=== PATIENT | male | born 1955 | race American Indian/Alaskan Native ===

== ENCOUNTER 2016-07-02 09:34 | Emergency (ER) | payer OTHER ==
[2016-07-02] MEDS ORDERED: CATAPRES PO ONE (10:09)
--- NOTE | 2016-07-02 10:19 | Emergency Department Report ---
Chief Complaint: High BP Stated Complaint: NECK/LOWER BACK PAIN Time Seen by Provider: 07/02/16 10:06 - HPI History of Present Illness: 61-year-old male presents today with right-sided neck pain and left-sided low back pain radiating down his left leg. Admits to having history of similar symptoms. Denies recent injury or trauma. Denies bowel or bladder incontinence , numbness, weakness, paresthesias. Denies chest pain, shortness of breath, abdominal pain, urinary symptoms. Positive for history of high blood pressure states he has been out of his medication for 3 months. Patient would like a refill of his blood pressure medication and metformin. - ROS Review of Systems: Per HPI - Exam Vital Signs: Vital Signs 07/02/16 09:37 Temperature 98.2 F Pulse Rate 85 Respiratory 18 Rate Blood Pressure 177/111 O2 Sat by Pulse 100 Oximetry Physical Exam: General: 61-year-old male in no acute distress. Well-developed, well-nourished. CV: Regular rate and rhythm. Lungs: Clear to auscultation bilaterally. Abdomen: No tenderness to palpation. No guarding or rebound tenderness. MSE screening note: Focused history and physical exam performed. Due to findings the following was ordered: ED Disposition for MSE Condition: Stable
--- NOTE | 2016-07-02 10:47 | XRay Report ---
Lumbar spine 3 views: History: Midline tenderness. Findings: Normal height of vertebral bodies and intervertebral disc. Sclerotic articular surfaces with peripheral osteophytes at L3 and L4 and L5 vertebral body suggestive of degenerative changes. No fracture. No soft tissue calcification. Impression: Degenerative lumbar spine..
[2016-07-02 10:49] LABS: Basophils % (Auto) 0.4 % (0.0-1.8); Eosinophils % (Auto) 3.5 % (0.0-4.3); Hematocrit 41.7 % (35.5-45.6); Hemoglobin 13.7 gm/dl (11.8-15.2); Mean Corpuscular HGB Conc 33 % (32-34); Mean Corpuscular Hemoglobin 31 pg (28-32); Mean Corpuscular Volume 94 fl (84-94); Platelet Count 134 K/mm3 (140-440); Red Blood Count 4.46 M/mm3 (3.65-5.03); Red Cell Distribution Width 13.5 % (13.2-15.2); White Blood Count 7.6 K/mm3 (4.5-11.0)
[2016-07-02 11:17] LABS: Anion Gap 19 mmol/L; Blood Urea Nitrogen 15 mg/dL (9-20); Calcium 9.2 mg/dL (8.4-10.2); Carbon Dioxide 23 mmol/L (22-30); Chloride 97.1 mmol/L (98-107); Glucose 202 mg/dL (75-100); Potassium 4.5 mmol/L (3.6-5.0); Sodium 135 mmol/L (137-145)
[2016-07-02 12:52] LABS: Bilirubin,Urine NEG (Negative); Blood,Urine NEG (Negative); Ketones,Urine NEG (Negative); Leukocyte Esterase,Urine NEG (Negative); Mucus,Urine FEW /HPF; Nitrite,Urine NEG (Negative); Protein,Urine <15 mg/dL mg/dL (Negative); Urobilinogen,Urine < 2.0 mg/dL (<2.0); WBC,Urine < 1.0 /HPF (0.0-6.0)
[2016-07-02] MEDS ORDERED: ZESTRIL PO ONE (21:47)
[2016-07-02] MEDS ORDERED: TORADOL IM ONE (21:47)
[2016-07-02] MEDS ORDERED: GLUCOPHAGE PO ONE (21:47)
[2016-07-02] MEDS ORDERED: NORVASC PO ONE (21:47)
--- NOTE | 2016-07-02 21:53 | Emergency Department Report ---
ED General Adult HPI - General Chief complaint: High BP Stated complaint: NECK/LOWER BACK PAIN Time Seen by Provider: 07/02/16 10:06 Source: patient Mode of arrival: Ambulatory Limitations: No Limitations - History of Present Illness Initial comments: 61-year-old male with a past medical history of chronic right shoulder pain secondary to injury, hypertension, and diabetes presents to the hospital complains of right-sided neck and shoulder pain and left lower back pain radiating down the left leg. Symptoms times greater than one week and are constant, worse with movement and palpation. No alleviating factors reported. No posterior chest pain, shortness of breath, headache, focal weakness, focal numbness, or urinary incontinence. Patient reports that he had a shoulder injury in 2012 and has had intermittent pain since. Denies recent injury. Patient has been noncompliant with his BP and diabetes medications for greater then 3 months. Patient he was on Lotrel 5/20 and metformin. Patient states he just got his insurance reinstated and plans to follow-up on the with a new PMD. Severity scale (0 -10): 7 - Related Data Previous Rx's Medication Instructions Recorded Last Taken Type Amlodipine Besylate/Benazepril 1 each PO QDAY #30 capsule 07/02/16 Unknown Rx [Lotrel 5-20 mg] HYDROcodone/APAP 5-325 [[place] 1 each PO Q6HR PRN #20 tablet 07/02/16 Unknown Rx 5/325] Ibuprofen [Motrin] 800 mg PO Q8HR PRN #30 tablet 07/02/16 Unknown Rx metFORMIN [Glucophage] 500 mg PO BID #60 tablet 07/02/16 Unknown Rx Allergies Allergy/AdvReac Type Severity Reaction Status Date / Time No Known Allergies Allergy Unverified 07/02/16 09:37 ED Review of Systems ROS: Stated complaint: NECK/LOWER BACK PAIN Other details as noted in HPI Comment: All other systems reviewed and negative Other: Constitutional: No fevers chills Eyes: No eye pain visual changes ENT: No ear pain or throat pain Neck: As per HPI Respiratory: Denies cough wheezing shortness of breath Cardiovascular: Denies chest pain, palpitations, syncope GI: Denies abdominal pain, nausea, vomiting, diarrhea : Denies dysuria Musculoskeletal: As per HPI Skin: Denies rash, lesions, erythema Neurologic: Denies headache, numbness, weakness Psychiatric: Denies suicidal ideation, hallucinations ED Past Medical Hx - Medications Home Medications: Home Medications Medication Instructions Recorded Confirmed Last Taken Type Amlodipine Besylate/Benazepril 1 each PO QDAY #30 capsule 07/02/16 Unknown Rx [Lotrel 5-20 mg] HYDROcodone/APAP 5-325 [[place] 1 each PO Q6HR PRN #20 tablet 07/02/16 Unknown Rx 5/325] Ibuprofen [Motrin] 800 mg PO Q8HR PRN #30 tablet 07/02/16 Unknown Rx metFORMIN [Glucophage] 500 mg PO BID #60 tablet 07/02/16 Unknown Rx ED Physical Exam - General Limitations: No Limitations - Other Other exam information: General: No limitations, patient is alert in no acute distress Head exam: Atraumatic, normocephalic Eyes exam: Normal appearance, pupils equal reactive to light, extraocular movements intact ENT: Moist mucous membrane, normal oropharynx Neck exam: Normal inspection, full range of motion, right tenderness along the sternocleidomastoid muscle and right trapezius muscle Respiratory exam: Clear to auscultation bilateral, no wheezes, rales, crackles Cardiovascular: Normal rate and rhythm, normal heart sounds Abdomen: Soft, nondistended, and nontender, with normal bowel sounds, no rebound, or guarding Extremity: Full range of motion, mild shoulder pain with movement extending to right neck, no shoulder tenderness Back: Normal Inspection, full range of motion, lower left back paraspinal muscle tenderness Neurologic: Alert, oriented x3, cranial nerves intact, no motor or sensory deficit Psychiatric: normal affect, normal mood Skin: Warm, dry, intact ED Course Vital Signs 07/02/16 07/02/16 07/02/16 09:37 11:41 21:15 Temperature 98.2 F Pulse Rate 85 87 Respiratory 18 16 Rate Blood Pressure 177/111 Blood Pressure [Left] Blood Pressure 152/105 [Right] O2 Sat by Pulse 100 99 Oximetry 07/02/16 07/02/16 07/02/16 21:21 22:00 22:19 Temperature 99.0 F Pulse Rate 66 66 Respiratory 18 18 Rate Blood Pressure 147/90 147/90 Blood Pressure [Left] Blood Pressure 169/92 [Right] O2 Sat by Pulse 100 97 Oximetry 07/02/16 07/02/16 07/02/16 22:20 22:24 23:00 Temperature Pulse Rate 66 73 Respiratory 18 Rate Blood Pressure 147/90 131/82 Blood Pressure 147/96 [Left] Blood Pressure 151/93 [Right] O2 Sat by Pulse 99 Oximetry - Reevaluation(s) Reevaluation #1: 07/02/16 21:52 Toradol, metformin, lisinopril, and amlodipine ordered 07/02/16 21:52 Reevaluation #2: 07/02/16 23:38 Pain improved after toradol. BP improved further with ed treatment. ED Medical Decision Making - Lab Data Result diagrams: 07/02/16 10:37 07/02/16 10:37 Lab Results 07/02/16 07/02/16 07/02/16 Range/Units 10:37 10:37 Unknown WBC 7.6 (4.5-11.0) K/mm3 RBC 4.46 (3.65-5.03) M/mm3 Hgb 13.7 (11.8-15.2) gm/dl Hct 41.7 (35.5-45.6) % MCV 94 (84-94) fl MCH 31 (28-32) pg MCHC 33 (32-34) % RDW 13.5 (13.2-15.2) % Plt Count 134 L (140-440) K/mm3 Lymph % (Auto) 38.5 H (13.4-35.0) % [place] % (Auto) 5.8 (0.0-7.3) % Eos % (Auto) 3.5 (0.0-4.3) % Baso % (Auto) 0.4 (0.0-1.8) % Lymph # 2.9 (1.2-5.4) K/mm3 [place] # 0.4 (0.0-0.8) K/mm3 Eos # 0.3 (0.0-0.4) K/mm3 Baso # 0.0 (0.0-0.1) K/mm3 Seg Neutrophils % 51.8 (40.0-70.0) % Seg Neutrophils # 3.9 (1.8-7.7) K/mm3 Sodium 135 L (137-145) mmol/L Potassium 4.5 (3.6-5.0) mmol/L Chloride 97.1 L (98-107) mmol/L Carbon Dioxide 23 (22-30) mmol/L Anion Gap 19 mmol/L BUN 15 (9-20) mg/dL Creatinine 1.0 (0.8-1.5) mg/dL Estimated GFR > 60 ml/min BUN/Creatinine Ratio 15.00 % Glucose 202 H (75-100) mg/dL Calcium 9.2 (8.4-10.2) mg/dL Urine Color Yellow (Yellow) Urine Turbidity Clear (Clear) Urine pH 7.0 (5.0-7.0) Ur Specific [place] 1.021 (1.003-1.030) Urine Protein <15 mg/dl (Negative) mg/dL Urine Glucose (UA) 50 (Negative) mg/dL Urine Ketones Neg (Negative) mg/dL Urine Blood Neg (Negative) Urine Nitrite Neg (Negative) Urine Bilirubin Neg (Negative) Urine Urobilinogen < 2.0 (<2.0) mg/dL Ur Leukocyte Esterase Neg (Negative) Urine WBC (Auto) < 1.0 (0.0-6.0) /HPF Urine RBC (Auto) 1.0 (0.0-6.0) /HPF U Epithel Cells (Auto) 1.0 (0-13.0) /HPF Urine Mucus Few /HPF - Radiology Data Radiology results: report reviewed (xray lumbar: degenerative changes) - Medical Decision Making Patient discharge EMS for symptomatic treatment for right neck strain. Pain improved with Toradol. Blood pressure improved with by mouth meds. - Differential Diagnosis dissection, chronic hypertension, hypertensive emergency, MSK pain Critical Care Time: No Critical care attestation.: If time is entered above; I have spent that time in minutes in the direct care of this critically ill patient, excluding procedure time. ED Disposition Clinical Impression: Uncontrolled hypertension, Diabetes type 2, uncontrolled Neck strain Qualifiers: Encounter type: initial encounter Qualified Code(s): S16.1XXA - Strain of muscle, fascia and tendon at neck level, initial encounter Lumbar strain Qualifiers: Encounter type: initial encounter Qualified Code(s): S39.012A - Strain of muscle, fascia and tendon of lower back, initial encounter Disposition: DISCHARGED TO HOME OR SELFCARE Is pt being admited?: No Does the pt Need Aspirin: No Condition: Stable Instructions: Low Back Strain (ED), Cervical Sprain (ED), Diabetes Mellitus Type 2 in Adults (ED), Hypertension (ED) Additional Instructions: Take the medication as prescribed. Follow-up with your primary care doctor. Return if symptoms worsen. Prescriptions: Amlodipine Besylate/Benazepril [Lotrel 5-20 mg] 1 each PO QDAY #30 capsule HYDROcodone/APAP 5-325 [[place] 5/325] 1 each PO Q6HR PRN #20 tablet PRN Reason: Pain Ibuprofen [Motrin] 800 mg PO Q8HR PRN #30 tablet PRN Reason: Pain metFORMIN [Glucophage] 500 mg PO BID #60 tablet Referrals: PRIMARY CARE, [Primary Care Provider] - 3-5 Days Time of Disposition: 23:41
[2016-07-03 00:40] VITALS: BP 132/80
== END 2016-07-03 00:41 | disposition home or self-care (01) ==
LOC: ED 09:34
DX: S16.1XXA Strain of muscle, fascia and tendon at neck level, initial encounter (principal); S39.012A Strain of muscle, fascia and tendon of lower back, initial encounter; I10 Essential (primary) hypertension; E11.9 Type 2 diabetes mellitus without complications; X58.XXXA Exposure to other specified factors, initial encounter; Y93.9 Activity, unspecified; Y92.9 Unspecified place or not applicable; Y99.9 Unspecified external cause status
CPT/HCPCS: 36415; 72100; 80048; 81001; 85025; 96372; 99284; J1885

== ENCOUNTER 2016-12-19 06:07 | Day surgery (SDC) | payer OTHER ==
[2016-12-19] MEDS ORDERED: WATER FOR IRRIG STERILE IR ONE (06:45)
--- NOTE | 2016-12-19 07:25 | Anesthesia Consultation ---
<ABHILASH BEASLEY - Last Filed: 12/19/16 07:25> Anesthesia Consult and Med Hx Date of service: 12/19/16 - Airway Anesthetic Teeth Evaluation: Good ROM Head & Neck: Adequate Mental/Hyoid Distance: Adequate Mallampati Class: Class II Intubation Access Assessment: Probably Good - Pulmonary Exam CTA: Yes - Cardiac Exam Cardiac Exam: RRR - Pre-Operative Health Status ASA Pre-Surgery Classification: ASA2 Proposed Anesthetic Plan: MAC - Pulmonary Hx Smoking: Yes - Cardiovascular System Hx Hypertension: Yes - Endocrine Hx Insulin Dependent Diabetes: Yes <SHAHAB MYERS - Last Filed: 12/19/16 07:47> Anesthesia Consult and Med Hx - Pre-Operative Health Status ASA Pre-Surgery Classification: ASA3
--- NOTE | 2016-12-19 07:26 | Anesthesia Day of Surgery ---
Anesthesia Day of Surgery - Day of Surgery Patient Examined: Yes Patient H&P Reviewed: Yes Patient is NPO: Yes
[2016-12-19] MEDS ORDERED: NACL 0.9% 1000 ML 1,000 ML IV SCH (08:00)
[2016-12-19] MEDS ORDERED: DIPRIVAN 10 MG/ML IV ONE ×2 (08:04)
--- NOTE | 2016-12-19 08:43 | Short Stay Summary ---
Short Stay Documentation - Allergies and Medications Current Medications: Allergies No Known Allergies Allergy (Verified 12/19/16 07:35) Home Medications Medication Instructions Recorded Confirmed Last Taken Type Amlodipine Besylate/Benazepril 1 each PO QDAY #30 capsule 07/02/16 12/19/16 05: 00 Rx [Lotrel 5-20 mg] HYDROcodone/APAP 5-325 [[place] 1 each PO Q6HR PRN #20 tablet 07/02/16 Unknown Rx 5/325] Ibuprofen [Motrin] 800 mg PO Q8HR PRN #30 tablet 07/02/16 Unknown Rx metFORMIN [Glucophage] 500 mg PO BID #60 tablet 07/02/16 12/18/16 12:00 Rx Active Medications Sodium Chloride (Nacl 0.9% 1000 Ml) 1,000 mls @ 50 mls/hr IV DIRECT DAVIDA - Brief post op/procedure progress note Date of procedure: 12/19/16 Pre-op diagnosis: Colon cancer screening Post-op diagnosis: same (1. Internal hemorrhoids 2. Diverticulosis) Procedure: Colonoscopy Anesthesia: MAC Findings: as above Surgeon: LUCILA RASCON Estimated blood loss: none Pathology: none Condition: stable - Disposition Condition at discharge: Stable Disposition: DC-01 TO HOME OR SELFCARE Short Stay Discharge Plan Activity: no restrictions Weight Bearing Status: Full Weight Bearing Diet: regular, low salt, diabetic
[2016-12-19 08:55] VITALS: BP 147/96
--- NOTE | 2016-12-19 09:20 | Post Anesthesia Evaluation ---
- Post Anesthesia Evaluation Patient Participated: Yes Airway Patent: Yes Stable Respiratory Function: Yes Temp > 96.8F: Yes Pain Manageable: Yes Adequeate Hydration: Yes Anesthesia Complications: No Block Receding Appropriately: Not Applicable
== END 2016-12-19 06:08 | disposition home or self-care (01) ==
LOC: GIO 06:07
PROVIDERS: ATTEND Internal Medicine Gastroenterology
DX: Z12.11 Encounter for screening for malignant neoplasm of colon (principal); K64.0 First degree hemorrhoids; K57.30 Diverticulosis of large intestine without perforation or abscess without bleeding; E11.9 Type 2 diabetes mellitus without complications; I10 Essential (primary) hypertension; Z79.899 Other long term (current) drug therapy; Z79.84 Long term (current) use of oral hypoglycemic drugs; Z98.890 Other specified postprocedural states
CPT/HCPCS: 45378; 82962; J2704